=== PATIENT | male | born 1975 | race Caucasian/White ===

== ENCOUNTER → 2017-11-25 10:40 | Outpatient (CLI) | payer OTHER | END | disposition home or self-care (01) | LOC: D.MRI 10:40 | DX: M25.512 Pain in left shoulder (principal); M25.511 Pain in right shoulder ==

== ENCOUNTER → 2018-09-08 05:00 | Day surgery (SDC) | payer OTHER ==
[2018-09-07 09:44] LABS: HEMATOCRIT 42.1 % (42.0-54.0); HEMOGLOBIN 15.7 g/dL (13.5-17.5); MCH 31.2 pg (26.0-34.0); MCHC 37.3 g/dL (31.0-37.0); MCV 83.7 fL (80.0-100.0); RBC 5.03 10x6/uL (4.20-6.10); RDW 11.4 % (11.5-14.5); WBC 6.2 10x3/uL (4.8-10.8)
[2018-09-07 10:14] LABS: CALC OSMOLALITY 287 mosm/kg (275-300); CALCIUM 9.2 mg/dL (8.5-10.1); CARBON DIOXIDE 31.5 mmol/L (21.0-32.0); CHLORIDE - SERUM 95 mmol/L (98-107); CREATININE - SERUM 0.9 mg/dL (0.6-1.3); SODIUM 132 mmol/L (136-145); UREA NITROGEN 11 mg/dL (7-18); eGFR NON AFRICAN AMERICAN > 90 mL/min (90-120)
[2018-09-07 10:17] LABS: GLUCOSE 533 mg/dL (74-106)
[~2018-09-08] VITALS: Ht 167.6 cm; Wt 70.3 kg
[~2018-09-08 05:00] MED LIST: LANTUS SOL100 UNIT/1 SC; PERCOCET 10-321 EAC1 PO; VISTARIL50 MG PO
[2018-09-08 05:36] LABS: CALC OSMOLALITY 281 mosm/kg (275-300); CALCIUM 9.3 mg/dL (8.5-10.1); CARBON DIOXIDE 28.9 mmol/L (21.0-32.0); CHLORIDE - SERUM 98 mmol/L (98-107); CREATININE - SERUM 0.7 mg/dL (0.6-1.3); POTASSIUM - SERUM 3.4 mmol/L (3.5-5.1); SODIUM 135 mmol/L (136-145); UREA NITROGEN 12 mg/dL (7-18); eGFR NON AFRICAN AMERICAN > 90 mL/min (90-120)
[2018-09-08 05:37] LABS: GLUCOSE 310 mg/dL (74-106)
[2018-09-08 06:08] VITALS: BP 109/67; Ht 167.6 cm; Wt 70.3 kg
--- NOTE | 2018-09-08 10:56 | OP ---
PATIENT NAME: RICK WEBER JR MEDICAL RECORD: [id number] :73 LOCATION:[facility] ADMISSION DATE: SURGEON: FRANCISCO TRAN DO DATE OF OPERATION: 09/08/2018 PROCEDURE PERFORMED: Left shoulder arthroscopy with subacromial decompression, distal clavicle excision, labral debridement and bicep tenodesis. PREOPERATIVE DIAGNOSES: Left shoulder pain, superior labral anterior posterior tear, subacromial impingement and acromioclavicular joint arthritis. POSTOPERATIVE DIAGNOSES: Left shoulder pain, superior labral anterior posterior tear, subacromial impingement and acromioclavicular joint arthritis. INDICATIONS: Mr. Weber is a 43-year-old male that presented with a long history of left shoulder pain. He said it was very painful for movements. MRI was done, which showed a possible partial rotator cuff tear and possible SLAP tear, acromioclavicular joint arthritis and type 2 acromion. He was informed that I would look at the rotator cuff while I was in there, and if it was more than 50% torn I would fix if it; if it were not, then I would leave it. He was okay with that plan as well as the other risks including infection, bleeding, damage to nerves and vessels and need for further surgery, he signed a consent. SURGEON: Francisco Tran DO DESCRIPTION OF PROCEDURE: The patient received a block by anesthesia in the preoperative area. He was taken to operative suite in the right lateral decubitus position with the left arm up. He was sedated and an LMA was placed. The left shoulder was then prepped and draped in sterile fashion. Timeout was performed. Everyone was in agreeance with the correct side, site, patient and procedure. Once that was completed, the procedure began with insufflating the joint through the posterior portal with an 18-gauge spinal needle with 6 cc of normal saline. A 11-blade scalpel was then used to establish a portal. The shoulder joint was then entered and then the camera was entered into the joint. The anterior portal was then established with an 18-gauge spinal needle and 11-blade scalpel. A burner was brought in through that portal and a biceps tenotomy was done. The SLAP tear was seen prior to this as well as the rotator cuff was inspected. Supraspinatus, infraspinatus and subscapularis were all in good repair and no tears were seen on the articular side. Articular surface appeared to be very good shape, nothing was in the inferior gutter of the shoulder. The cartilage was also in good shape. No chondromalacia was seen. The subacromial space was then entered and there was a significant amount of bursa and inflammatory tissue. The lateral portal was then established with an 18-gauge spinal needle and 11-blade scalpel. A burner and a shaver was brought in to decompress it and to remove a large portion of the bursa just in order to see the distal lateral acromion was then removed. A spur was removed from it and the AC joint was opened up as the acromion and the clavicle were almost touching. This was opened up to approximately 7-mm. Once that was done, the rotator cuff was inspected on the bursal side, seemed to be in good repair. No tears at all were seen on the bursal side either. The scope was then removed and the incision was made on the anterior humerus. Careful dissection was made down to the long head of the biceps tendon. This was pulled out, whipstitched and a unicortical hole was put in the humerus. A button was then placed on the stitch tendon and placed in this hole. It was cinched down and tied and secured into place. The excess tendon and suture was then cut. This incision was then OPERATIVE REPORT [id number] SUZIERICKBELLE SCHULZ JR irrigated and closed with 2-0 Vicryl and 4-0 Monocryl ran on the skin. The portals were then closed with 4-0 Monocryl in an inverted interrupted fashion and Dermabond glue was placed in all of them. Telfa and Tegaderm were placed on them. He was awakened and taken to recovery in stable condition, placed in a sling. BLOOD LOSS: Minimal. COMPLICATIONS: None. TRANSINT:[id number] Voice Confirmation ID: [id number] DOCUMENT ID: [id number] FRANCISCO TRAN DO at 1056 CC: [id number] DICTATION DATE: 09/08/18 0908 PERSONAL SECURITY SPECIALIST: 09/08/18 1047 [facility] [address] [place] [address]
== END | disposition home or self-care (01) ==
LOC: D.OPS 05:00 → D.PAN 07:00
PROVIDERS: Anesthesiology; ATTEND Orthopaedic Surgery
DX: S43.432A Superior glenoid labrum lesion of left shoulder, initial encounter (principal); X58.XXXA Exposure to other specified factors, initial encounter; M13.812 Other specified arthritis, left shoulder; M75.42 Impingement syndrome of left shoulder; Z01.812 Encounter for preprocedural laboratory examination